=== PATIENT | male | born 1960 | race Caucasian/White ===

== ENCOUNTER 2023-06-07 16:25 | Emergency (ER) | payer OTHER ==
[2023-06-07 17:43] LABS: #Eosinphils 0.3 10x3/uL (0.0-0.5); #Monocytes 0.8 10x3/uL (0.0-1.1); #Neutrophils 3.9 10x3/uL (1.5-8.4); %Basophils 0.2 % (0.0-2.0); %Eosinophils 4.5 % (0.0-6.0); %Lymphocytes 19.3 % (18.0-47.0); %Monocytes 12.5 % (0.0-10.0); Hematocrit 40.1 % (38.8-50.0); Mean Corpuscular HGB CONC 34.9 g/dL (32.0-36.0); Mean Corpuscular Hemoglobin 32.6 pg (27.0-33.0); Mean Corpuscular Volume 93.5 fl (81.2-95.1); Mean Platelet Volume 9.1 fl (7.4-10.4); Platelet Count 159 10x3/uL (150-450); RBC Distribution Width 14.4 % (11.5-14.5); Red Blood Cell (RBC) Count 4.29 10x6/uL (4.32-5.72); White Blood Cell (WBC) Count 6.2 10x3/uL (3.5-10.5)
[2023-06-07] MEDS ORDERED: Thiamine HCl 200 MG/2 ML VIAL ONE (17:43)
[2023-06-07 18:12] LABS: ALT (SGPT) 51 U/L (8-55); AST (SGOT) 35 U/L (5-34); Albumin 3.8 g/dL (3.4-4.8); Alkaline Phosphatase 45 U/L (40-110); Anion Gap 17 mmol/L (10-20); BUN (Urea Nitrogen) 21 mg/dL (8.4-25.7); Bilirubin, Total 0.5 mg/dL (0.2-1.2); CK (CPK) 43 U/L (30-200); Calc. Creatinine Clearance 0 mL/min (70-130); Calcium 9.7 mg/dL (7.8-10.44); Carbon Dioxide 28 mmol/L (23-31); Chloride 97 mmol/L (98-107); Estimated GFR 55; Globulin 2.7 g/dL (2.4-3.5); Glucose 87 mg/dL (80-115); Magnesium 1.7 mg/dL (1.6-2.6); Potassium 3.8 mmol/L (3.5-5.1); Protein, Total 6.5 g/dL (5.8-8.1); Sodium 138 mmol/L (136-145)
[2023-06-07 19:44] LABS: SARS-CoV-2 NAA Rapid Test Not Detected (NotDetected)
== END 2023-06-07 19:25 | disposition home or self-care (01) ==
LOC: CSHERS 16:25
DX: I51.7 Cardiomegaly (principal); I45.10 Unspecified right bundle-branch block; F10.20 Alcohol dependence, uncomplicated; R79.89 Other specified abnormal findings of blood chemistry; R00.1 Bradycardia, unspecified; I10 Essential (primary) hypertension; E78.5 Hyperlipidemia, unspecified; E66.9 Obesity, unspecified
CPT/HCPCS: 70450; 71045; 80053; 82140; 82550; 83735; 83880; 84443; 85025; 93005; 94760; J3411

== ENCOUNTER 2023-06-07 23:49 | Emergency (ER) | payer MEDICAID, SELFPAY ==
[2023-06-08 00:30] LABS: #Eosinphils 0.3 10x3/uL (0.0-0.5); #Monocytes 0.8 10x3/uL (0.0-1.1); #Neutrophils 3.7 10x3/uL (1.5-8.4); %Basophils 0.2 % (0.0-2.0); %Eosinophils 4.9 % (0.0-6.0); %Monocytes 12.5 % (0.0-10.0); %Neutrophils 56.9 % (40.0-75.0); Hematocrit 39.6 % (38.8-50.0); Hemoglobin 13.6 g/dL (13.5-17.5); Mean Corpuscular HGB CONC 34.3 g/dL (32.0-36.0); Mean Corpuscular Hemoglobin 32.1 pg (27.0-33.0); Mean Corpuscular Volume 93.4 fl (81.2-95.1); Mean Platelet Volume 9.2 fl (7.4-10.4); Platelet Count 160 10x3/uL (150-450); RBC Distribution Width 14.5 % (11.5-14.5); Red Blood Cell (RBC) Count 4.24 10x6/uL (4.32-5.72); White Blood Cell (WBC) Count 6.5 10x3/uL (3.5-10.5)
[2023-06-08 00:45] LABS: ALT (SGPT) 51 U/L (8-55); AST (SGOT) 29 U/L (5-34); Albumin 3.7 g/dL (3.4-4.8); Alkaline Phosphatase 46 U/L (40-110); Anion Gap 13 mmol/L (10-20); BUN (Urea Nitrogen) 22 mg/dL (8.4-25.7); Bilirubin, Total 0.5 mg/dL (0.2-1.2); Calc. Creatinine Clearance 0 mL/min (70-130); Calcium 9.3 mg/dL (7.8-10.44); Carbon Dioxide 33 mmol/L (23-31); Chloride 97 mmol/L (98-107); Estimated GFR 51; Globulin 2.5 g/dL (2.4-3.5); Glucose 102 mg/dL (80-115); Potassium 3.5 mmol/L (3.5-5.1); Protein, Total 6.2 g/dL (5.8-8.1); Sodium 139 mmol/L (136-145)
[2023-06-08 00:46] LABS: Acetaminophen Less than 10 mcg/mL (10.0-30.0); Alcohol Less than 10.0 mg/dL (Less than 10); Salicylate Less than 8.0 mg/dL (15.0-30.0)
== END 2023-06-08 09:19 | disposition home or self-care (01) ==
LOC: CSHERS 23:49
DX: Z04.3 Encounter for examination and observation following other accident (principal)
CPT/HCPCS: 70450; 71045; 80053; 80307; 82140; 82550; 83735; 83880; 84443; 85025; 93005; 94760; 99284; J3411